=== PATIENT | male | born 1950 | race Caucasian/White ===

== ENCOUNTER 2017-09-13 16:53 | Inpatient (IN) | payer OTHER ==
--- NOTE | 2017-09-13 17:06 | CPEKG ---
Heart Rate: 82 RR Interval: 732 P-R Interval: 164 QRSD Interval: 94 QT Interval: 404 QTC Interval: 472 P Fyffe: 61 QRS Fyffe: 53 T Wave Fyffe: 36 EKG Severity - BORDERLINE ECG - EKG Impression: SINUS RHYTHM EKG Impression: PROBABLE LEFT ATRIAL ABNORMALITY Electronically Signed By: Nancy Baldwin 13-Sep-2017 22:10:09
--- NOTE | 2017-09-13 17:10 | EDPHY ---
H & P Time Seen by Provider: 09/13/17 16:59 HPI/ROS: CHIEF COMPLAINT: Syncope, head injury HISTORY OF PRESENT ILLNESS: Patient is a 66-year-old male with a history of malignancy who presents emergency department after having a syncopal episode. The patient does not recall the event. He is not sure what he is doing when he fainted. Patient states that he had planned on getting medication from the pharmacy. Patient currently complains of mild posterior head pain. He denies neck or back pain. No chest pain or shortness of breath. No abdominal pain. No nausea vomiting. The patient is not lightheaded or dizzy. He does not feel weak or numb. No focal deficits. Per EMS, the patient was at the eye doctor's office. He was found in the parking lot. REVIEW OF SYSTEMS: My complete review of systems is negative except as mentioned in the HPI. Past Medical/Surgical History: Includes hypertension, MDS Past surgical history: Hernia repair, port placement Social history: Patient is . No acute disease. Smoking Status: Never smoked Physical Exam: Vitals noted GENERAL: Well-appearing, in no acute distress, alert. HEAD: Patient has a posterior head hematoma. There is a 2 cm vertical laceration posteriorly. No galea involvement EYES: PERRLA, EOMI, normal to inspection. ENT: Airway intact, no dental or oral injury, no malocclusion, no hemotympanum , normal external examination. NECK: The trachea is midline. There is no crepitus. The C-spine is nontender. NEXUS criteria is negative (no midline tenderness, no distracting injury, no altered mental status, no recent alcohol use, no focal neurologic deficit). RESPIRATORY: Clear to auscultation bilaterally, no rales, rhonchi or wheezing. There is no crepitus or palpable rib fractures. CVS: Regular rate and rhythm, no rubs, murmurs, or gallops. ABDOMEN: Soft, nontender, nondistended, normal bowel sounds, no bruising or abrasions. Pelvis: Stable. No tenderness palpation. Hips full range of motion. BACK: Normal to inspection, no spinal tenderness, no spinal step off, no notable bruising or abrasions. SKIN: Normal color, warm, dry. No pallor or diaphoresis. EXTREMITIES: Atraumatic, neurovascularly intact distally in all extremities, pelvis is stable , hips with full range of motion, moves all extremities freely. NEURO/PSYCH: Alert and oriented x 3, GCS 15, normal mood and affect, normal motor sensory exam. NEURO/PSYCH: Higher functions: Alert and Oriented x3. Normal speech and cognition. Normal mood and affect. Cranial nerves: Normal as tested. Cerebellar: Normal as tested. Good finger to nose, good [id number], normal gait. Peripheral exam: Normal motor exam. Normal sensation. Normal reflexes. Constitutional: Initial Vital Signs Temperature (C) 36.7 C 09/13/17 16:57 Heart Rate 86 09/13/17 16:57 Respiratory Rate 16 09/13/17 16:57 Blood Pressure 114/75 09/13/17 16:57 O2 Sat (%) 96 09/13/17 16:57 O2 Delivery Mode Room Air Allergies/Adverse Reactions: Sulfa (Sulfonamide Antibiotics) Allergy (Verified 09/13/17 16:57) Home Medications: Medication Instructions Recorded Acyclovir 09/13/17 Amlodipine Besylate 09/13/17 Fioricet (*) 09/13/17 Fluocinonide 0.05% 09/13/17 Lorazepam 09/13/17 Omeprazole 09/13/17 Pentamidine Isethionate 09/13/17 Tacrolimus 09/13/17 Tamsulosin HCl 09/13/17 Ursodiol 09/13/17 Voriconazole 09/13/17 Zofran 09/13/17 Medical Decision Making - Diagnostics Imaging Results: Imaging Impressions Chest X-Ray 09/13/17 17:13 Impression: 1. No evidence for aspiration pneumonia or neurogenic pulmonary edema. 2. Thoracic scoliosis with several mild compression abnormalities of unknown chronicity. Head CT 09/13/17 17:13 Impression: 1. Oblique nondisplaced left parietal acute skull fracture. 2. Acute subarachnoid hemorrhage involving the basilar cisterns and anterior interhemispheric falx region. 3. Posttraumatic hemorrhagic cortical contusions involving the anteroinferior mesial bilateral frontal lobes, with right frontal lobe edema, subarachnoid hemorrhage, and anterior interhemispheric falx hemorrhage. 4. Mild cerebral atrophy. 5. Recommend follow-up CTA brain to rule out basilar tip aneurysm. Findings and recommendations discussed with Emergency Department physician, Nancy Baldwin M.D., at 1726 hours, on September 13, 2017. Final report concurs with initial preliminary interpretation. A test result has been communicated to a licensed care provider and documented in the [email or web address] Critical Result system on 09/13/2017 17:36, Message ID [id number]. ED Course/Re-evaluation: In the emergency department I discussed possible etiologies with the patient. I answered all his questions. Laboratory studies, EKG and head CT were ordered. EKG shows normal sinus rhythm, normal rate, normal axis, normal intervals. There are no ST or T-wave abnormalities. EKG is normal as interpreted by me. 17 15: Patient's arrived. I took further history from his . He states that he is being treated for MDS. He does not have AML. She states he went to the eye doctor today. I walked Radiology to review the images with the radiologist. Head CT results showed a subarachnoid hemorrhage. This was in the basilar region which raises the question of aneurysm. Patient also has a left parietal skull fracture. White count was low at 3.3. Absolute neutrophil count is 1.04. Hematocrit was low at 24.7. Platelet counts were low at 30. Coags are normal. Patient's chemistry panel is unremarkable. Troponin is pending. 1730: I discussed the case with Dr. Fuchs from Neurosurgery. I discussed the CT results. I also discussed the platelets at 30. At this time Dr. Fuchs does not want to treat the patient with platelets. She states that if the patient had a subdural hematoma or epidural hematoma she would consider platelets but not for subarachnoid hemorrhage. She did not recommend further imaging. She recommended the patient be placed in the step-down unit. 1735: I discussed the patient with the hospitalist service. Dr. Dye will admit. I discussed the case with the hospitalist service because the patient has a history of MDS, reported immunodeficiency, and chronic anemia. I discussed the results with the patient and . I answered all of their questions. I assured the laboratory studies with the patient's . She states that the white count is improved. The hematocrit seems to be at his baseline. She states the platelets are improved from his previous value of 11. 1749: I rechecked the patient. He had no focal neurologic deficits. He has answer my questions appropriately. 1804: I discussed the case with from [facility]. This is the patient's oncologist. The I discussed the patient's findings and presentation at [facility]. He felt it appropriate to observe the patient here until he is stable for transfer to [facility]. Dr. Francois's phone number is [phone] On subsequent evaluation by Neurosurgery the patient was treated with platelets. These were ordered by the neurosurgery service. Neurosurgery also ordered a CT angiogram. I discussed the plan with Dr. Skinner who was in the emergency department. It was noted the patient had elevated blood pressure and heart rate. Dr. Skinner discussed this with Neurosurgery the patient's blood pressure will be kept at below 150 systolic. Differential Diagnosis: My differential includes but is not limited to syncope, ACS, acute MN, dysrhythmia, electrolyte abnormality, sugar abnormality, subarachnoid hemorrhage , subdural hematoma, epidural hematoma Critical Care Time: The patient required 35 min of critical care time. This was exclusive of any unbundled procedure. This was due the patient's history, need for frequent rechecks, intracranial hemorrhage, consultation with Neurosurgery and Internal Medicine. - Data Points Laboratory Results: Laboratory Results 09/13/17 17:16 09/13/17 17:16 09/13/17 09/13/17 09/13/17 17:18 17:16 17:16 WBC 3.30 10^3/uL L 10^3/uL (3.80-9.50) RBC 2.40 10^6/uL L 10^6/uL (4.40-6.38) Hgb 8.4 g/dL L g/dL (13.7-17.5) Hct 24.7 % L % (40.0-51.0) MCV 102.9 fL H fL (81.5-99.8) MCH 35.0 pg H pg (27.9-34.1) MCHC 34.0 g/dL g/dL (32.4-36.7) RDW 14.8 % % (11.5-15.2) Plt Count 30 10^3/uL L 10^3/uL (150-400) MPV 9.9 fL fL (8.7-11.7) Neut % (Auto) 31.5 % L % (39.3-74.2) Lymph % (Auto) 60.6 % H % (15.0-45.0) [place] % (Auto) 6.7 % % (4.5-13.0) Eos % (Auto) 0.0 % L % (0.6-7.6) Baso % (Auto) 0.9 % % (0.3-1.7) Nucleat RBC Rel Count 0.0 % % (0.0-0.2) Absolute Neuts (auto) 1.04 10^3/uL L 10^3/uL (1.70-6.50) Absolute Lymphs (auto) 2.00 10^3/uL 10^3/uL (1.00-3.00) Absolute Monos (auto) 0.22 10^3/uL L 10^3/uL (0.30-0.80) Absolute Eos (auto) 0.00 10^3/uL L 10^3/uL (0.03-0.40) Absolute Basos (auto) 0.03 10^3/uL 10^3/uL (0.02-0.10) Absolute Nucleated RBC 0.00 10^3/uL 10^3/uL (0-0.01) Immature Gran % 0.3 % % (0.0-1.1) Immature Gran # 0.01 10^3/uL 10^3/uL (0.00-0.10) Platelet Estimate DECREASED L (ADEQ) PT 14.2 SEC SEC (12.0-15.0) INR 1.08 (0.83-1.16) APTT 28.3 SEC SEC (23.0-38.0) Sodium 145 mEq/L mEq/L (135-145) Potassium 3.8 mEq/L mEq/L (3.5-5.2) Chloride 110 mEq/L mEq/L (97-110) Carbon Dioxide 19 mEq/l L mEq/l (22-31) Anion Gap 16 mEq/L mEq/L (8-16) BUN 14 mg/dL mg/dL (7-23) Creatinine 1.0 mg/dL mg/dL (0.7-1.3) Estimated GFR > 60 Glucose 100 mg/dL mg/dL (70-100) Calcium 8.9 mg/dL mg/dL (8.5-10.4) Troponin I < 0.012 ng/mL ng/mL (0.000-0.034) Medications Given: Discontinued Medications Sodium Chloride (Ns) 500 mls @ 1,000 mls/hr IV EDNOW ONE PRN Reason: Protocol Stop: 09/13/17 17:41 Last Admin: 09/13/17 18:27 Dose: 500 mls Departure - Departure Disposition: [facility] Inpatient Acute Clinical Impression: Subarachnoid bleed, MDS (myelodysplastic syndrome), Thrombocytopenia, Laceration of head Syncope Qualifiers: Syncope type: unspecified Qualified Code(s): R55 - Syncope and collapse Anemia Qualifiers: Anemia type: bone marrow failure Bone marrow failure anemia type: other bone marrow failure Qualified Code(s): D61.89 - Other specified aplastic anemias and other bone marrow failure syndromes Condition: Good
[2017-09-13] MEDS ORDERED: NS 500 ML IV ONE (17:12)
[2017-09-13 17:22] LABS: PLATELET COUNT 30 10^3/uL (150-400)
[2017-09-13 17:31] LABS: INR 1.08 (0.83-1.16); PROTIME(PATIENT) 14.2 SEC (12.0-15.0)
[2017-09-13] MEDS ORDERED: IOPAMIDOL (ISOVUE 370) 100 ML BTL IV ONE (18:05)
[2017-09-13] MEDS: niCARdipine/NACL 200 ML IV SCH ×2 (20:26→23:25)
[2017-09-13] MEDS: NS 1,000 ML IV SCH (20:26)
[2017-09-13] MEDS ORDERED: ACETAMINOPHEN 325 MG TAB PO PRN (21:03)
--- NOTE | 2017-09-13 21:16 | GHP ---
[f rep st] HISTORY AND PHYSICAL DATE OF ADMISSION: 09/13/2017 CHIEF COMPLAINT: Fall. HISTORY OF PRESENT ILLNESS: This is a 66-year-old man with a history of MDS, who was brought into e emergency department after being found in the parking lot. 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 He remembers pulling into the parking lot, however, he does not remember parking the car or any thing thereafter. He really has no idea what happened. He was found by bystanders on the ground. E MS was called. He was taken to the emergency department. He was found to have a subarachnoid hemorr estefania at that time. He does not remember any preceding shortness of breath, chest pain, or palpitatio ns. He does have a history of syncope as well as frequent presyncope which is typically postural. T his did not happen. He does not have any recollection of that, as it usually gives him a prodrome pr ior to his syncopal episodes. He is complaining of some right shoulder pain. He has no numbness or weakness in his upper or lower extremities. PAST MEDICAL/SURGICAL HISTORY: 1. 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 He j ust got a DLI (direct leukocyte infusion) this Monday. He is followed by Dr. Francois at [facility]. 2. Hypertension. 3. GERD. 4. BPH. MEDICATIONS: Please see medication reconciliation. ALLERGIES: Sulfa. FAMILY HISTORY: Reviewed and noncontributory. SOCIAL HISTORY: He is accompanied by his . REVIEW OF SYSTEMS: 10-point review of systems is conducted and is negative except per HPI. PHYSICAL EXAMINATION: VITAL SIGNS: Blood pressure 160/82, heart rate 89, respiration rate 18, satur ating 95% on room air, temperature is 36.7. GENERAL. Mr. Ordoñez is a pleasant man, who is resting com fortably, in no acute distress. HEENT: Shows him to have a bandage wrapped around his head. EXTREM ITIES: Shows his right shoulder to be tender to palpation in the posterior deltoid. He has node res tricted range of motion. He has no clear deformities. CARDIOVASCULAR: Regular rate and rhythm. ere are no murmurs, rubs, or gallops. PULMONARY: Lungs clear to auscultation bilaterally. ABDOMEN: Soft, nontender, nondistended. SKIN: No rash. : No [place]bin. NEUROLOGIC: Shows him to be alert and oriented x3. He is answer questions slightly slowly. Motor is intact in the upper and lower ex tremities. Cranial nerves are intact. PSYCHIATRIC: Shows normal mood and affect. LABS: White count is 3.3, hemoglobin is 8.4, platelets are 30. INR is 1.08, bicarb was 19. Troponi n is negative. DATA: 1. I discussed with Dr. Baldwin, as well as Lyssa Riley, we will admit to step-down unit. 2. Head CT scan shows parietal scalp fracture as well as multiple areas of intracranial hemorrhage, as well as a subarachnoid hemorrhage. 3. Chest x-ray, which I personally viewed and interpreted, shows scoliosis. He has a tunneled line in place. 4. EKG, which I personally viewed and interpreted, shows sinus rhythm. There is nothing acutely isc hemic. IMPRESSION AND PLAN: 1. Possible syncope: Initial discussion with Neurosurgery, they feel as though this is traumatic he morrhage. Because of this, we will perform cardiac workup including echocardiogram, telemetry monito ring, trend troponins. Certainly syncope could have been triggered by an acute subarachnoid hemorrha ge, as well if this were nontraumatic. 2. Subarachnoid hemorrhage with cortical contusions: Neurosurgery has been consulted. This will li erin be nonoperative. His platelets are low, we will transfuse him platelets tonight. CT angiogram of his head has been performed to look for aneurysms, read is pending at this time. Blood pressure w ill be controlled to a systolic per protocol. I have written for a nicardipine drip. 3. Myelodysplastic syndrome: He is under the care of Dr. Francois at [facility] the phone #[phone]. Wou ld consider transfer to [facility] if Dr. Francois requests that. Is not on any immunosuppressants right now. He is on prophylactic voriconazole and acyclovir. 4. Hypertension: We will hold his oral medications for now and control his blood pressure with ml rdipine. 5. Gastroesophageal reflux disease: Omeprazole. 6. Benign prostatic hypertrophy: Flomax. /[id number]/MODL
[2017-09-13] MEDS: HYDROCODONE/APAP 5/325 TAB PO PRN (21:56)
[2017-09-13] MEDS ORDERED: EMOLLIENT BASE TP PRN (21:56)
[2017-09-13] MEDS ORDERED: DESONIDE 0.05% 15 GM CREAM TP PRN (21:56)
[2017-09-13] MEDS ORDERED: FLUOCINONIDE TP PRN (21:56)
[2017-09-13] MEDS: HYDROmorphONE/DILAUDID 2 MG/ML INJ IVP PRN (23:02)
[2017-09-13] MEDS ORDERED: ONDANSETRON 4 MG/2 ML VIAL ONE (23:06)
[2017-09-13] MEDS ORDERED: ONDANSETRON 4 MG/2 ML VIAL IVP PRN (23:09)
--- NOTE | 2017-09-13 23:32 | GCON ---
[f rep st] CONSULTATION DATE OF CONSULTATION: 09/13/2017 CHIEF COMPLAINT: Syncope. HISTORY OF PRESENT ILLNESS: This is a 66-year-old male with a history of myelodysplastic disorder an d orthostatic hypotension, who was apparently driving to get some medication, attempted to stand up f rom getting out of his car. He remembers nothing else until he was being moved onto the gurney. He complains of some pain in his right mormon. He had a laceration to his head. He denies any tongue b iting, any loss of bowel or bladder. He denies any other numbness, tingling, weakness or pain, with the exception of exquisite pain to his right shoulder, worse with movement. PAST MEDICAL HISTORY: Positive for myelodysplasia, orthostatic hypotension, anemia, thrombocytopenia . PAST SURGICAL HISTORY: Includes herniorrhaphy, wisdom teeth removal, cardiac cath, and a right chest port. FAMILY HISTORY: No family history that is contributory. SOCIAL HISTORY: He does not smoke. He does drink approximately 2 glasses of wine a night. He does not use any other illicit drugs. MEDICATIONS: At home include: 1. Pentamidine isethionate. 2. Multivitamins. 3. Herbal supplements. 4. Fluocinonide. 5. Desonide. 6. Venlafaxine. 7. Acyclovir. 8. Fioricet. 9. Omeprazole. 10. Flomax. 11. . 12. Vfend. ALLERGIES: Sulfa, although he has tolerated Bactrim in the past. Blood pressure is 173/80, heart rate is 92, respiratory rate is 16, satting 95% on room air, temp is 36.7 degrees Celsius. LABORATORY DATA: White blood cell count 3.3, hemoglobin 8.4, hematocrit 24.7, platelets are 30. PT 14.2, INR 1.08, APTT 28.3. Sodium 145, potassium 3.8, chloride 110, CO2 19, BUN 14, creatinine 1.0. CT of the head reveals an oblique nondisplaced left parietal acute skull fracture and acute subarach noid hemorrhage involving the basilar cisterns and anterior interhemispheric falx. Posttraumatic hem orrhagic cortical contusion involving the anterior inferior medial bilateral frontal lobes with right frontal lobe edema, subarachnoid hemorrhage and anterior interhemispheric falx hemorrhage, mild cere bral atrophy, and it was recommended that he have a followup CT of the brain to rule out a basilar an eurysm given the pattern of the subarachnoid hemorrhage. CT angio was performed and there is unchang ed appearance in the frontal contusions and no aneurysm was identified. PHYSICAL EXAM: GENERAL: He is alert and oriented x3. HEENT: Pupils equal, round, reactive to ligh t and accommodation. External ocular muscles are intact. There is no facial asymmetry or tongue dev iation. NEUROLOGIC: Sensation is intact in V1, V2, V3 distributions of 5th cranial nerve bilaterall y. Strength is 5/5 to bilateral deltoids, although the right deltoid is pain limited, biceps, tricep s, wrist flexors, wrist extensors, hand intrinsics, iliopsoas, quadriceps, hamstrings, dorsiflexors, plantar flexors, EHL. DTRs are +2/4 biceps, brachioradialis, patellar and Achilles. IMPRESSION AND PLAN: This is a 66-year-old male with thrombocytopenia and orthostatic hypotension, w ho had a syncopal episode likely secondary to his baseline orthostatic hypotension, who has a subarac hnoid hemorrhage and contusion that is traumatic in nature. He is neurologically intact. He is in t intensive care unit. I would control his blood pressure to 160 systolic, keep his head of bed gre ater than 30 degrees, repeat head CT in the morning. He did receive a 6-pack of platelets given that his platelets are 30 and he does have some cerebral contusion. I would hold off on Keppra as he is a GCS of 15, q.2-hour neuro checks are adequate. Please call with any changes in neurologic status. Otherwise, we will follow for a repeat head CT in the a.m. This was discussed with the patient and the nurse who was at bedside and all were in agree ment. /[id number]/MODL
[2017-09-14] MEDS: HYDROCODONE/APAP 5/325 TAB PO PRN (03:21)
[2017-09-14] MEDS: niCARdipine/NACL 200 ML IV SCH (03:22)
[2017-09-14 06:08] LABS: PLATELET COUNT 43 10^3/uL (150-400)
[2017-09-14 06:18] LABS: INR 1.14 (0.83-1.16); PROTIME(PATIENT) 14.8 SEC (12.0-15.0)
--- NOTE | 2017-09-14 07:45 | NEUSURGPN ---
Assessment/Plan: A: 66 yo M s/p syncopal event with tSAH, contusion, skull fracture Plan: -Neuro intact, GCS 15 this am -Continue Q4 neuro checks, continue ICU care. -Shoulder pain - xrays done no abnormalities -Repeat HCT reviewed with Dr. Fuchs this am. New area of right temporal hemorrhage, blossoming of frontal hemorrhage. Report is pending. -Platelets 43 this am, will give another pack of platelets -PT/OT/DRIVE AWAY DRIVER ordered -CTA without aneurysm or other vascular abnormalities -Repeat HCT tomorrow am -Call NS with any questions -D/w Dr Fuchs Subjective: Pt resting in bed, c/o shoulder pain. Objective: AAOx3 NAD VSS CN II-XII grossly intact No droop Motor 5/5 BUE/BLE +LT Neuro Check Frequency: Q4 Urinary Catheter in Place: No - Physician Discussed Patient with : [facility] Physical Exam - Vitals, I&O, Labs I and O 09/13/17 09/14/17 09/15/17 05:59 05:59 05:59 Intake Total 2537 Output Total 1875 Balance 662 Weight 81.5 kg Intake: Oral (ml) 800 IV Infused (ml) 1737 Ns 1,000 ml @ 70 mls/hr 665 IV CONT GAETANO Rx#: [id number] niCARdipine/NACL 200 ml @ 472 Titrate IV CONT GAETANO Rx#: [id number] Output: Urine (ml) 1875 Urinal 1425 Vital Signs Temp Pulse Resp BP Pulse Ox 37.1 C 87 16 125/57 H 97 09/14/17 04:00 09/14/17 06:00 09/14/17 06:00 09/14/17 06:00 09/14/17 06:00 Laboratory Results 09/14/17 05:50 09/14/17 05:50 ICD10 Worksheet Patient Problems: Problems Problem Status Onset Anemia Acute Laceration of head Acute MDS (myelodysplastic syndrome) Acute Subarachnoid bleed Acute Syncope Acute Thrombocytopenia Acute
[2017-09-14] MEDS ORDERED: URSODIOL 250 MG PO SCH (09:00)
[2017-09-14] MEDS ORDERED: VORICONAZOLE 50 MG PO SCH (09:00)
--- NOTE | 2017-09-14 09:03 | ECHO ---
[email or web address] [address] [address] Main: [phone] Fax: Transthoracic Echocardiogram Name: MARGARITA PERRY MR#: [id number] Study Date: 09/14/2017 Study Time: 07:47 AM Date of : 1950 Age: 66 year(s) Height: 175.3 cm (69 in.) Weight: 76.66 kg (169 lb.) BSA: 1.92 m2 Gender: Male Examination: Echo Indication: Cardiac: syncope Image Quality: Contrast: Requested by: Melvin Skinner BP: 121 mmHg/56 mmHg Heart Rate: Rhythm: Indication: Cardiac: syncope Procedure Staff Director Of Retention: Jourdan Carvajal RDCS Reading Physician: Julien Hernandez MD Requesting Provider: Conclusions: No pericardial effusion. Ejection fraction 79%. No significant valvular abnormalities by Doppler 2 dimensional study. Measurements: Chambers Valvular Assessment AV/MV Valvular Assessment TV/PV Normal Normal Normal Name Value Range Name Value Range Name Value Range Ao Jenae (MM): 3.7 cm (2.2 cm-3.7 AV Vmax: 1.45 m/s (1 m/s-1.7 PV Vmax: 1.17 m/s (0.6 m/s-0.9 cm) m/s) m/s) IVSd (2D): 1.0 cm (0.6 cm-1.1 AV maxP mmHg ( - ) PV PGmax: 5 mmHg ( - ) cm) LVOT Vmax: 1.11 m/s (0.7 m/s-1.1 LVDd (2D): 5.1 cm (4.2 cm-5.9 m/s) cm) AR (PHT): 406 ms ( - ) LVDs (2D): 2.7 cm (2.1 cm-4 MV E Vmax: 1.08 m/s ( - ) cm) MV A Vmax: 0.80 m/s ( - ) LVPWd (2D): 1.0 cm (0.6 cm-1 MV E/A: 1.35 ( - ) cm) LVEF (2D): 79 (>=54 %) Continued Measurements: Chambers Valvular Assessment AV/MV Name Value Name Value LADs Lon.6 cm MV E' Septal: 0.07 m/s LA Area: 21.2 cm2 MV E/E' Septal: 15.00 LA Volume: 65 ml MV E/E' Lateral: 9.90 LA Volume Index: 33.9 ml/m2 AR Vmax: 2.40 cm/s Patient: MARGARITA PERRY Study Date: 09/14/2017 Page 1 of 2 07:47 AM Findings: Left Ventricle: Normal size left ventricle. No LV hypertrophy. Global hypercontractility of the left ventricle. EF is 79 %. No regional wall motion abnormality. Diastolic dysfunction is present. . Right Ventricle: Normal size right ventricle. Normal RV function. Left Atrium: The left atrium is normal in size. Right Atrium: The right atrium is normal in size. Mitral Valve: The mitral valve is normal in appearance and function. Aortic Valve: The aortic valve is tri-leaflet and functions normally. Trivial aortic valve regurgitation. Tricuspid Valve: The tricuspid valve is normal in appearance and function. Pulmonic Valve: The pulmonic valve is normal in appearance and function. Aorta: The aorta is normal. Pericardium: No pericardial effusion. (No Signature Object) Patient: MARGARITA PERRY Study Date: 09/14/2017 Page 2 of 2 07:47 AM [id number]
[2017-09-14] MEDS: PANTOPRAZOLE SODIUM 40 MG TAB PO SCH (09:07)
[2017-09-14] MEDS: VORICONAZOLE 200 MG TAB PO SCH ×2 (09:07→20:49)
[2017-09-14] MEDS: VENLAFAXINE HCL 75 MG TAB PO SCH (09:08)
[2017-09-14] MEDS: TAMSULOSIN HCL 0.4 MG CAP PO SCH ×2 (09:08→19:44)
[2017-09-14] MEDS: ACYCLOVIR 400 MG TAB PO SCH ×2 (09:09→19:44)
[2017-09-14] MEDS ORDERED: DESONIDE 0.05% 15 GM CREAM TP PRN ×2 (09:11→09:17)
[2017-09-14] MEDS ORDERED: FLUOCINONIDE TP PRN (09:15)
[2017-09-14] MEDS ORDERED: EMOLLIENT BASE TP PRN (09:15)
--- NOTE | 2017-09-14 10:40 | PDMN ---
Medical Necessity Medical necessity: Patient meets inpatient criteria per physician note and MCG M -70 SAH, Nonsurgical Treatment - 4 days (found down in a parking lot, CT shows SAH and parietal skull fracture, hx of MDS w/orthostatic hypotension; now hypertensive/on Cardene IV gtt for B/P; thrombocytopenic/platelets transfused; anticipated LOS > 2 midnights for ongoing eval and treatment of SAH.)
[2017-09-14] MEDS: oxyCODONE IR 5 MG TAB PO PRN ×2 (11:42→19:43)
[2017-09-14] MEDS: VORICONAZOLE 50 MG PO SCH ×2 (11:42→20:49)
[2017-09-14] MEDS: URSODIOL 250 MG PO SCH ×2 (11:42→19:45)
--- NOTE | 2017-09-14 13:18 | ASMTCASEMG ---
Living Arrangements What is your living Answers: With Spouse arrangement? Who do you live with? Type Of Residence What kind of residence do Answers: House you live in? Discharge Plan Comments Coordination Status Comments Notes: Patient is a 66yo male who was found down in a parking lot and brought to [facility] ED. Patient has been admitted for subarachnoid hemorrhage with cortical contusions, possible syncope, hypertension. OT/PT/SKOOG MACHINE OPERATOR/Inpatient rehab evals have been ordered. Jaylene from inpatient rehab called to say they are aware and will be sending someone to do the eval when patient is ready medically. D/C plan TBD. CM will follow. Date Signed: 09/14/2017 01:17 PM Electronically Signed By:Olya Estrada LCSW
--- NOTE | 2017-09-14 17:44 | GCON ---
[f rep st] CONSULTATION INPATIENT HEMATOLOGY CONSULTATION DATE OF CONSULTATION: 09/14/2017 REQUESTING PHYSICIAN: Dr. Fredo Kothari REASON FOR CONSULTATION: Intracranial hemorrhage in a patient with myelodysplastic syndrome. HISTORY OF PRESENT ILLNESS: The patient is a 66-year-old man admitted with a right temporal subarach noid hemorrhage. He had a likely syncopal episode that he does not recall yesterday. He has chronic thrombocytopenia due to myelodysplastic syndrome, which I will detail in the next paragraph. His pl atelet count on admission was 30. He received a unit of platelets and platelet count went up to 43. A CT of the head done today showed some slight evidence of progression of the hemorrhage and he was given an additional unit of platelets. He is not having any other bleeding. His history of myelodysplastic syndrome is as follows. He was diagnosed in December of 2016. He has a h istory of recurrent syncope and he was noted to be pancytopenic during evaluation for 1 of these epis odes. He received treatment with azacitidine. 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 His sister was the donor. Subsequent b one marrow biopsies unfortunately showed persistence of dysplastic cells and he has been given severa l doses of donor lymphocyte infusion at the [facility] by his service desk analyst there , Dr. Garcia. He is receiving DLI alternating with azacitidine and if the response is inadequate, he may go for 2nd unrelated transplant. I discussed the case with Dr. Garcia over the phone. The patent apparently received a fairly large dose of donor lymphocyte cells [address] Garcia wanted hi m to observe carefully for evidence of acute [id number]-nzjg disease. PAST HISTORY: 1. Myelodysplastic syndrome, as described above. 2. Status post allogeneic stem cell transplant. 3. History of recurrent syncope. CURRENT MEDICATIONS: Include [place], acyclovir, fluconazole, and Effexor. ALLERGIES: He is allergic to sulfa. FAMILY HISTORY: Noncontributory. SOCIAL HISTORY: He is a nonsmoker, nondrinker. Lives with his . REVIEW OF SYSTEMS: Other than pertinent positives noted in HPI, 14-point review of systems negative. EXAMINATION: VITAL SIGNS: Temperature is 36.8, blood pressure 140/72, heart rate 67, oxygen saturat ion 97% on room air. GENERAL: He was tired-appearing. HEENT: His head was bandaged with some blee ding from a superficial abrasion. Sclerae anicteric. Oropharynx is clear. NECK: Supple without ly mphadenopathy. LUNGS: Clear to auscultation bilaterally. CARDIAC EXAMINATION: Regular rate and rh ythm. No murmurs, gallops, rubs. ABDOMEN: Normoactive bowel sounds. Nontender. Nondistended. EX TREMITIES: Without edema, 2+ pulses. NEUROLOGIC: He is alert and oriented x3. Strength and sensat ion were grossly intact. SKIN: No petechiae or purpura. LABORATORY DATA: From today, white count 2.45, hemoglobin 7.3, platelets 43. INR 1.14, PTT 28.3. IMPRESSION: This is a 66-year-old man with a history of what sounds like high-risk myelodysplastic s yndrome, status post allogeneic stem cell transplant and donor lymphocyte infusion. He had what soun ds like a syncopal episode and struck his head. He has what sounds like a history of orthostatic hyp otension. He is being monitored closely in the ICU for evidence of progression of his intracranial b leed, which fortunately does appear stable. There is no clinical evidence of graft versus host disea se, which would manifest as a rash, diarrhea, or liver function test abnormalities. RECOMMENDATIONS: 1. Continue to transfuse to keep platelet count above 50. 2. I will check a fibrinogen just to ensure there is no additional coagulopathy at play. There is n o reason to think that would be low, however. 3. When the patient is stable enough, it would be advantageous to discharge him so he can be followe d closely in Dr. Garcia's clinic to monitor for [id number], to make sure he is staying on track with the rest of his therapy. However, if the patient is unstable from a neurological point of view , he should obviously be kept here to manage that life-threatening problem. 4. I discussed this case by telephone with Dr. Garcia, and also with Dr. Kothari, the hospitalist. Thank for this consultation. I will continue to follow the patient with you closely [facility]. /[id number]/MODL
--- NOTE | 2017-09-14 18:27 | HOSPPROG ---
Hospitalist Progress Note Assessment/Plan: Assessment: 66-year-old male presents with acute skull fracture and acute intracranial hemorrhage complicated by thrombocytopenia secondary to myelodysplastic syndrome Plan: 1. Intracranial hemorrhage. Acute, present on admission, considered to be traumatic in the setting of syncope -follow-up head CT demonstrating worsening in the right temporal and frontal areas -CTA not demonstrating any evidence of aneurysm -appreciate neurosurgery consultation, ongoing care from Dr. Ora Fuchs, repeat head CT in a.m. -provide additional transfusion of platelets today -maintain systolic blood pressure less than 140 -neurologic exam currently stable, primary symptom is lethargy 2. Syncope. Unclear etiology, patient does not recall events precipitating his fall but has had previous episodes of syncope or near syncope -echocardiogram currently pending -currently no events on telemetry -recommend outpatient 30 day event monitor through [facility] 3. Thrombocytopenia. Secondary to mild dysplastic syndrome, continue to transfuse platelets for levels less than 50,000 in setting of active bleeding 4. Pancytopenia 2/2 Myelodysplastic syndrome. Chronic, status post transplant and DLI, at high risk of graft vs host disease and receives frequent lab monitoring as outpt -currently no e/o GVHD -Dr. Chaney checking fibrinogen level -d/w patient and , although we fully support transfer of patient to [facility] for ongoing care related to this issue, [facility] is unable to provide appropriate care for his traumatic ICH, so transfer is unable to be arranged -given the complexity and concerns surrounding his MDS, consultation w/ Dr. Chaney performed, and he has discussed the patient's case w/ primary oncologist Dr. Francois -per patient/ request, we will attempt to conference call/round w/ Dr. Francois tomorrow 4. Suspected concussion. Evidenced by retrograde amnesia status post traumatic head injury -may be contributing some of patient's lethargy 5. Acute skull fracture. Ongoing head trauma care 6. Shoulder pain. Acute, no evidence of fracture on x-ray, physical exam suggestive of either rotator cuff injury or possible underlying hematoma given his thrombocytopenia and trauma -given that no surgical intervention would be performed at this time even if the patient did have a small traumatic hematoma, will hold on advanced imaging and recommend performing MRI as outpatient if the range of motion does not improve over the next week with conservative measures including heat and ice Diet. Regular Prophylaxis. High risk patient, SCDs Code. Full Disposition. Anticipated discharge is uncertain, pending stabilization of head CT 35 min of critical care time spent with this patient, coordinating care with his , his nurse, our correctional counselor/case manager, Dr. Aristeo Chaney, and specifically addressing his acute intracranial hemorrhage and concomitant myelodysplastic syndrome, rendering him critically ill and high risk for worsening morbidity and /or mortality. Subjective: Patient reports ongoing fatigue, mild headache Objective: Vital Signs Temp Pulse Resp BP Pulse Ox 36.8 C 67 15 148/72 H 97 09/14/17 15:42 09/14/17 15:42 09/14/17 15:42 09/14/17 15:42 09/14/17 12:00 Laboratory Results 09/14/17 05:50 09/14/17 05:50 09/13/17 09/14/17 09/15/17 05:59 05:59 05:59 Intake Total 2537 1170 Output Total 1875 950 Balance 662 220 PT 14.8 SEC (12.0-15.0) 09/14/17 05:50 INR 1.14 (0.83-1.16) 09/14/17 05:50 - Physical Exam Constitutional: no apparent distress, not in pain, uncomfortable Eyes: PERRL, EOMI Ears, Nose, Mouth, Throat: hearing normal Cardiovascular: regular rate and rhythym, no murmur, rub, or gallop, No edema Respiratory: no respiratory distress, no rales or rhonchi, clear to auscultation Gastrointestinal: normoactive bowel sounds, soft, non-tender abdomen, no palpable masses, No distension Skin: other (No erythema, induration, ecchymoses at his right chest catheter site) Musculoskeletal: other (Limited range of motion right shoulder on active and passive range of motion greater than 90 degrees with pain elicited in the right shoulder, tenderness over the sub a.c. Joint space as well anterior shoulder groove, no tenderness over the right clavicle or posterior shoulder, no tenderness on internal or external rotation of the right humerus) Neurologic: AAOx3, sensation intact bilaterally, CN II-XII Intact, No weakness ( Motor strength 5/5 bilateral upper and lower extremities) Psychiatric: not anxious, not encephalopathic, flat affect, No agitated ICD10 Worksheet Patient Problems: Problems Problem Status Onset Syncope Acute Subarachnoid bleed Acute Anemia Acute MDS (myelodysplastic syndrome) Acute Thrombocytopenia Acute Laceration of head Acute
[2017-09-14] MEDS: hydrALAZINE 20 MG/ML VIAL IVP PRN (19:44)
[2017-09-14] MEDS ORDERED: VORICONAZOLE 200 MG TAB PO ONE (20:30)
[2017-09-14] MEDS ORDERED: hydrALAZINE 20 MG/ML VIAL IVP ONE (22:21)
[2017-09-15 05:37] LABS: PLATELET COUNT 65 10^3/uL (150-400)
[2017-09-15] MEDS: hydrALAZINE 20 MG/ML VIAL IVP PRN (07:11)
[2017-09-15] MEDS: oxyCODONE IR 5 MG TAB PO PRN (07:12)
--- NOTE | 2017-09-15 08:30 | CPEKG ---
Heart Rate: 71 RR Interval: 845 P-R Interval: 156 QRSD Interval: 92 QT Interval: 412 QTC Interval: 448 P [place]: 74 QRS [place]: 70 T Wave [place]: 53 EKG Severity - ABNORMAL ECG - EKG Impression: SINUS RHYTHM EKG Impression: VENTRICULAR BIGEMINY EKG Impression: SINUS PAUSE/ARREST WITH ATRIAL ESCAPE EKG Impression: PROBABLE LEFT ATRIAL ABNORMALITY Electronically Signed By: Janelle Andrew 15-Sep-2017 12:25:41
--- NOTE | 2017-09-15 08:59 | NEUSURGPN ---
Assessment/Plan: A: 66 yo M s/p syncopal event with tSAH, contusion, skull fracture Plan: -Neuro intact, GCS 15 this am -Continue Q4 neuro checks, continue ICU care. -Shoulder pain - xrays done no abnormalities -Repeat HCT reviewed with Dr. Fuchs this am. Hemorrhage appears slightly worse. Radiologist report reads as stable. -Platelets 65 this am, continue to monitor -PT/OT/CADDY ordered -CTA without aneurysm or other vascular abnormalities -Repeat HCT likely in 2 days. -Call NS with any questions -Pt seen and d/w Dr Fuchs Subjective: Pt resting in bed, no new complaints. Chart reviewed. Objective: AAOx3 NAD VSS MAEx4 CN II-XII grossly intact Motor 5/5 BUE/BLE +LT Urinary Catheter in Place: No - Physician Discussed Patient with : Jef Patient Seen by : Jef Neurosurgery Physical Exam - Vitals, I&O, Labs I and O 09/14/17 09/15/17 09/16/17 05:59 05:59 05:59 Intake Total 2537 1670 Output Total 1875 1450 Balance 662 220 Weight 81.5 kg Intake: Oral (ml) 800 1500 IV Infused (ml) 1737 170 Ns 1,000 ml @ 70 mls/hr 665 140 IV CONT GAETANO Rx#: [id number] niCARdipine/NACL 200 ml @ 472 30 Titrate IV CONT GAETANO Rx#: [id number] Output: Urine (ml) 1875 1450 Urinal 1425 1450 Vital Signs Temp Pulse Resp BP Pulse Ox 37.5 C 56 L 12 158/76 H 95 09/15/17 00:05 09/15/17 06:00 09/15/17 06:00 09/15/17 07:11 09/15/17 06:00 Laboratory Results 09/15/17 05:24 09/15/17 05:24 ICD10 Worksheet Patient Problems: Problems Problem Status Onset Anemia Acute Laceration of head Acute MDS (myelodysplastic syndrome) Acute Subarachnoid bleed Acute Syncope Acute Thrombocytopenia Acute
[2017-09-15] MEDS: ACYCLOVIR 400 MG TAB PO SCH ×2 (09:18→20:25)
[2017-09-15] MEDS: VORICONAZOLE 200 MG TAB PO SCH ×2 (09:18→20:23)
[2017-09-15] MEDS: TAMSULOSIN HCL 0.4 MG CAP PO SCH ×2 (09:19→20:25)
[2017-09-15] MEDS: VENLAFAXINE HCL 75 MG TAB PO SCH (09:19)
[2017-09-15] MEDS: PANTOPRAZOLE SODIUM 40 MG TAB PO SCH (09:19)
[2017-09-15] MEDS: URSODIOL 250 MG PO SCH ×2 (09:22→20:25)
[2017-09-15] MEDS: VORICONAZOLE 50 MG PO SCH ×2 (09:22→20:23)
--- NOTE | 2017-09-15 10:07 | SOAPPROG ---
SOAP Progress Note Assessment/Plan: Assessment: 1. High risk MDS s/p allo SCT (related donor) 2. Recent donor lymphocyte infusion 3. Recurrent syncope, unexplained 4. Subarachnoid hemorrhage after fall 5. Likely R rotator cuff injury after fall no evidence of graft versus host disease. Platelets at goal (>50) Plan: - will continue to monitor for evidence of acute GVHD, which can be a complication of donor lymphocyte infusion - continued monitoring per neurosurgery d/w dr zelaya 25 min spent w/ pt and in coordination of care. 09/15/17 10:05 Subjective: headache. R shoulder hurts about the same. Objective: exam: tired appearing Lungs CTAB CV RRR no MGR Abd: +BS NT ND Ext: no edema Skin: no rash or petechie Neuro: a+ox3 Vital Signs Temp Pulse Resp BP Pulse Ox 37.5 C 74 17 143/62 H 99 09/15/17 00:05 09/15/17 08:00 09/15/17 08:00 09/15/17 08:00 09/15/17 08:00 Laboratory Results 09/15/17 05:24 09/15/17 05:24 09/14/17 09/15/17 09/16/17 05:59 05:59 05:59 Intake Total 2537 1670 Output Total 1875 1450 Balance 662 220 PT 14.8 SEC (12.0-15.0) 09/14/17 05:50 INR 1.14 (0.83-1.16) 09/14/17 05:50 ICD10 Worksheet Patient Problems: Problems Problem Status Onset Anemia Acute Laceration of head Acute MDS (myelodysplastic syndrome) Acute Subarachnoid bleed Acute Syncope Acute Thrombocytopenia Acute
[2017-09-15] MEDS: niCARdipine/NACL 200 ML IV SCH ×7 (10:34→23:57)
[2017-09-15] MEDS: HYDROmorphONE/DILAUDID 2 MG/ML INJ IVP PRN ×2 (10:53→17:56)
--- NOTE | 2017-09-15 11:36 | GCON ---
[f rep st] CONSULTATION REASON FOR ADMISSION: 1. Syncope. 2. Subarachnoid hemorrhage. 3. Myelodysplastic syndrome. HISTORY OF PRESENT ILLNESS: Mr. Ordoñez is a 66-year-old white male with an extensive past medical his tory including gastroesophageal reflux disease, hypertension, myelodysplastic syndrome for which he i s followed at [facility] by Dr. Rodriguez. He was found down by bystanders and was b rought to the emergency room and at that time found to have a subarachnoid hemorrhage. Preceding cecile t, he has no recollection of being in ill health. He has history of syncope in the past. He was admi tted and seen by Neurosurgery. He was found to have subarachnoid hemorrhage and a skull fracture. He did not require neurosurgical intervention. Currently, patient is resting comfortably. PAST MEDICAL HISTORY: Significant for myelodysplastic syndrome, gastroesophageal reflux disease, hyp ertension, benign prostatic hypertrophy. ALLERGIES: Sulfa. SOCIAL HISTORY: No history of tobacco use. No history of alcohol use. He is , has excellent family support. REVIEW OF SYSTEMS: A 10-point review of systems was performed and is negative except for what is lis bailee in HPI. PHYSICAL EXAMINATION: VITAL SIGNS: Blood pressure is 143/62, pulse 74, respirations 17, he is afebr ile oxygen saturation 99% on room air. GENERAL: A well-developed, well-nourished 66-year-old white male who is resting comfortably in no acute distress. HEENT: Eyes are PERRLA, EOMI. Throat shows no erythema nor tonsillar hypertrophy. NECK: Supple. There is no cervical adenopathy. HEART: Regula r rate and rhythm with a 2/6 systolic murmur at the left sternal border without radiation. LUNGS: D iminished breath sounds but no wheeze. ABDOMEN: Soft, nontender. Bowel sounds are present. EXTREM ITIES: No clubbing, cyanosis, or edema. NEUROLOGIC: Cranial nerves 2 through 12 are grossly intact. No focal deficits. LABORATORIES: White count is 2.3, hemoglobin 7.8, hematocrit 22, platelet count 65, sodium 139, pota ssium 3.8, chloride 103, CO2 is 25, BUN 14, creatinine 0.8, glucose is 102. Echocardiogram shows an ejection fraction of 79%. Otherwise grossly normal. IMPRESSION: 1. Subarachnoid hemorrhage. 2. Syncopal episode. 3. Pancytopenia. 4. Myelodysplastic syndrome. 5. Hypertension. 6. Benign prostatic hypertrophy. 7. Gastroesophageal reflux disease. RECOMMENDATIONS: 1. Agree with Neurosurgical following. 2. Case has been discussed with Dr. Rodriguez, the patient's oncologist. 3. Would recommend Oncology consultation. 4. Will keep transfusing platelets as tolerated. 5. DVT and PE prophylaxis. Holding anticoagulation for now. 6. Stress ulcer prophylaxis. 7. PT and OT. 8. Speech. /[id number]/MODL
--- NOTE | 2017-09-15 14:27 | GCON ---
[f rep st] CONSULTATION CARDIAC CONSULTATION. DATE OF CONSULTATION: 09/15/2017 CHIEF COMPLAINT: Syncope. HISTORY OF PRESENT ILLNESS: The patient is a 66-year-old male with a history of myelodysplastic syndrome, admitted to the hospital with a subarachnoid hemorrhage. He was feeling well the day of admission and decided to go supervisor opening and picking some medications at [facility]. He recalled parking the car and does not recall anything after that until he was being placed on a stretcher. He was found down by bystanders and EMS was activated. He was found to have a subarachnoid hemorrhage without other neurological symptoms. His only real complaint at this point is fatigue and mild headache. He has been monitored on telemetry and has remained in sinus rhythm. He does have some episodes of bradycardia where with rates of 30 beats per minute and then he has a quick acceleration of heart rates into the 100s. He is in sinus during these events. His EKG reveals normal sinus rhythm. His troponins were negative x2. Echocardiogram revealed preserved LV function with an ejection fraction of 79% without any significant wall motion or valvular abnormalities. A CTA of the head did also evaluate a portion of the neck. This is without significant stenosis. He has a history of syncope, which has been present for the past 4 years. He states he has had an event approximately once a month. They all occurred when he went from a sitting to a standing position. They were preceded by lightheadedness. He has been able to get on the ground, which has prevented him from having true syncope. He also has a history of coronary angiogram 6-7 years ago remotely. He states he had some plaque at that time, but there was no evidence of obstruction. PAST MEDICAL HISTORY: Chronic myelodysplastic syndrome, hyperlipidemia, reflux. PAST SURGICAL HISTORY: Noncontributory. SOCIAL HISTORY: He denies any tobacco use. He currently helps his with her job. He is a retired professor over at the engineering department. HOME MEDICATIONS: Vfend 200 mg twice daily, Ursodiol 250 mg twice daily, Flomax 0.4 mg twice daily, omeprazole 20 mg daily, Fioricet p.r.n., acyclovir 800 mg twice daily, multivitamin daily, supplements daily, desonide cream p.r.n. , venlafaxine 150 mg daily, Vfend 50 mg twice daily. ALLERGIES: Possibly sulfa. REVIEW OF SYSTEMS: Negative except for what is stated in the H and P. PHYSICAL EXAMINATION: GENERAL: Patient appears in no acute distress. VITAL SIGNS: Blood pressure 113/52, heart rate 71, oxygen saturation of 94% on room air. He is afebrile. NECK: No carotid bruits or JVD present. LUNGS: Clear to auscultation. No wheezes, rhonchi, or crackles auscultated. CARDIAC: Regular rate and rhythm without any murmurs, rubs, or gallops appreciated. ABDOMEN: Soft, nontender, nondistended. No evidence of splenomegaly or hepatomegaly. EXTREMITIES: Palpable pulses bilaterally without any evidence of edema. NEUROLOGIC: Nonfocal. SKIN: No obvious rashes or ecchymosis identified. PSYCHIATRIC: Mood and affect appropriate. LABORATORY: Troponin negative x2. WBCs 2.32, hemoglobin 7.8, hematocrit 22.8, platelets 65. DIAGNOSTIC STUDIES: Echocardiogram revealed preserved LV function without any evidence of significant wall motion or valvular abnormalities. EKG reveals normal sinus rhythm. He has been monitored on telemetry and has remained in sinus rhythm. He does become bradycardic at times with a rate of 30 and then increase into the 100s. Head CT showed intraparenchymal hemorrhage involving both frontal lobes and right anterior rastafarian lobe as well as stable subarachnoid hemorrhage anteriorly. Head CTA did visualize portions of the neck which showed patent vertebral arteries, as well as widely patent common carotid arteries. ASSESSMENT: The patient is a 66-year-old male admitted with syncope and subarachnoid hemorrhage. PLAN: The patient has a history of recurrent syncope. His episodes in the past sound like orthostatic events. On this occasion, he was found down near his car. It is possible he had an orthostatic event which was more profound secondary to anemia and decreased intravascular volume. He has been monitored on telemetry and has remained in sinus rhythm. He does, on occasion, become bradycardic with rates in the 30s with a quick increase of rates into the 100s. This could be related to his subarachnoid hematoma and is certainly is not an indication for a pacemaker. I would recommend he continue to be monitored on telemetry and, if no arrhythmias are identified by the time he is discharged, getting a 30-day event monitor and follow up with [facility]. Of note, his echocardiogram essentially normal with preserved LV function and no evidence of wall motion or valvular abnormalities. Also, a CT of the head did show portions of the carotids which were without significant stenosis. Recommendations were discussed with the patient as well as his . /[id number]/MODL MTDD
[2017-09-15] MEDS: NS 1,000 ML IV SCH (15:37)
--- NOTE | 2017-09-15 16:32 | HOSPPROG ---
Hospitalist Progress Note Assessment/Plan: Assessment: 66-year-old male presents with acute skull fracture and acute intracranial hemorrhage complicated by thrombocytopenia secondary to myelodysplastic syndrome Plan: 1. Intracranial hemorrhage. Acute, present on admission, considered to be traumatic in the setting of syncope, with surrounding cerebral edema -d/w Dr. Fuchs, follow-up head CT demonstrating worsening in the right temporal and frontal areas w/ ongoing SAH -CTA not demonstrating any evidence of aneurysm -maintain systolic blood pressure less than 140 w/ nicardipine gtt -neurologic exam currently stable, primary symptom is lethargy, monitor q4 and if worsening repeat CBC to check Hgb/Plts and transfuse if necessary -although patient's has requested transfer to [facility], they do not have neurosurgery trauma services, and all of patient's providers (Dr. Fuchs, myself, Dr. Jacobo, Dr. Francois) agree that transfer at this juncture is unsafe and unobtainable -will repeat HCT on Day 5, sooner if neuro exam changes -reviewed the HCT findings w/ /patient, showing changes from presentation to current HCT 2. Syncope. Unclear etiology, patient does not recall events precipitating his fall but has had previous episodes of syncope or near syncope which were thought to be orthostatic, and has had w/u at [facility] over the past 4 years -echocardiogram normal -discussed the intermittent sinus elie events w/ Cardiology, consultation appreciated, it is felt that a PPM is not indicated at that the precipitating event for this episode of care was likely orthostatic, exacerbated by anemia -recommend outpatient 30 day event monitor through [facility] 3. Thrombocytopenia. Secondary to mild dysplastic syndrome, continue to transfuse platelets for levels less than 50,000 in setting of active bleeding 4. Pancytopenia 2/2 Myelodysplastic syndrome. Chronic, status post stem-cell transplant and DLI, at high risk of graft vs host disease and receives frequent lab monitoring as outpt -currently no e/o GVHD, nursing care order placed to monitor for signs (vomiting , severe headache, diarrhea, skin rash, fever) and monitor provider if such signs occur -fibrinogen normal, appreciate ongoing consultation by Dr. Chaney -lengthy family conference today (60 minutes) at bedside w/ patient and , including patient's oncologist, Dr. Francois, reviewed patient's MDS tx up to this juncture, the proposed f/u care for approx 7-10 days from stabilization of ICH, and ongoing outpt labs/care coordination through their clinic w/ [facility] -patient/ to obtain daily labs for their records/trending, reviewed current labs w/ patient/ 4. Acute concussion. Evidenced by retrograde amnesia status post traumatic head injury w/ ongoing symptoms including mild headache and fatigue -encourage PT/OT/Cog therapy, anticipate that he will have persistent sx for 4- 6 weeks w/ slow recovery -IPR eval requested and possibility shared w/ patient and , as there are some care concerns regarding ability to complete ADLs following this hospitalization 5. Acute skull fracture. Ongoing head trauma care 6. Shoulder pain. Acute, no evidence of fracture on x-ray, physical exam suggestive of either rotator cuff injury or possible underlying hematoma given his thrombocytopenia and trauma -d/w patient, will get MRI for prognostic value -ice/heat Diet. Regular Prophylaxis. High risk patient, SCDs Code. Full Disposition. Anticipated discharge is uncertain, pending stabilization of head CT 75 min of critical care time spent with this patient, coordinating care with his , his nurse, our welfare case worker, Donnell Mcfarland, Jef, Shiv, and specifically addressing his acute intracranial hemorrhage and concomitant myelodysplastic syndrome, rendering him critically ill and high risk for worsening morbidity and/or mortality. Subjective: ongoing fatigue, mild headache, R shoulder pain w/ ROM Objective: Vital Signs Temp Pulse Resp BP Pulse Ox 37.5 C 82 12 133/87 H 96 09/15/17 00:05 09/15/17 16:00 09/15/17 16:00 09/15/17 16:00 09/15/17 16:00 Laboratory Results 09/15/17 05:24 09/15/17 05:24 09/14/17 09/15/17 09/16/17 05:59 05:59 05:59 Intake Total 2537 1670 Output Total 1875 1450 250 Balance 662 220 -250 PT 14.8 SEC (12.0-15.0) 09/14/17 05:50 INR 1.14 (0.83-1.16) 09/14/17 05:50 - Physical Exam Constitutional: no apparent distress, appears nourished, not in pain, uncomfortable Eyes: PERRL, EOMI Neurologic: AAOx3, No facial droop Psychiatric: not anxious, not encephalopathic, flat affect, other (fatigued), No agitated ICD10 Worksheet Patient Problems: Problems Problem Status Onset Syncope Acute Subarachnoid bleed Acute Anemia Acute MDS (myelodysplastic syndrome) Acute Thrombocytopenia Acute Laceration of head Acute
[2017-09-16] MEDS: NS 1,000 ML IV SCH (05:24)
[2017-09-16] MEDS: niCARdipine/NACL 200 ML IV SCH ×3 (05:24→14:55)
[2017-09-16 05:43] LABS: PLATELET COUNT 49 10^3/uL (150-400)
[2017-09-16] MEDS: VORICONAZOLE 200 MG TAB PO SCH ×3 (07:41→22:48)
[2017-09-16] MEDS: ACYCLOVIR 400 MG TAB PO SCH ×2 (07:41→20:57)
[2017-09-16] MEDS: VENLAFAXINE HCL 75 MG TAB PO SCH (07:42)
[2017-09-16] MEDS: PANTOPRAZOLE SODIUM 40 MG TAB PO SCH (07:42)
[2017-09-16] MEDS: oxyCODONE IR 5 MG TAB PO PRN (07:42)
[2017-09-16] MEDS: TAMSULOSIN HCL 0.4 MG CAP PO SCH ×2 (07:42→20:58)
[2017-09-16] MEDS: VORICONAZOLE 50 MG PO SCH ×2 (07:43→21:05)
[2017-09-16] MEDS: URSODIOL 250 MG PO SCH ×2 (07:43→20:58)
--- NOTE | 2017-09-16 08:37 | NEUSURGPN ---
Assessment/Plan: A: 66 yo M s/p syncopal event with tSAH, contusion, skull fracture, stable neuro intact Plan: -Continue Q4 neuro checks, continue ICU care. -crit care to adjust BP meds -Shoulder pain - xrays done no abnormalities -Platelets 49 this am, crit care will manage -PT/OT/SPECIALIZED DEVELOPER ordered -CTA without aneurysm or other vascular abnormalities -Repeat HCT yesterday reviewed with Dr. Fuchs who felt Hemorrhage appears slightly worse. Radiologist report reads as stable. we will repeat tomorrow morning and if stable then could dc if cleared by therapies and f/u 2-3 weeks with new HCT. -Call NS with any questions Subjective: no complaint of headaches. feels a little "mushy" and has felt unsteady on his feet. no other issues Objective: VSS AAOx4 NAD cnii-xii grossly intact EOMI, PEARLA no facial droop, no pronator drift MAEx4 5/5= silt gait deferred. Neuro Check Frequency: q4 - Physician Discussed Patient with : Jef Neurosurgery Physical Exam - Vitals, I&O, Labs I and O 09/15/17 09/16/17 09/17/17 05:59 05:59 05:59 Intake Total 1670 2553 Output Total 1450 700 10 Balance 220 1853 -10 Intake: Oral (ml) 1500 450 IV Infused (ml) 170 2103 Ns 1,000 ml @ 70 mls/hr 140 917 IV CONT GAETANO Rx#: [id number] niCARdipine/NACL 200 ml @ 30 1186 Titrate IV CONT GAETANO Rx#: [id number] Output: Urine (ml) 1450 700 10 Toilet 100 Urinal 1450 600 10 Other: Number of Voids Toilet 1 Urinal 4 Number of Stools Toilet 1 Vital Signs Temp Pulse Resp BP Pulse Ox 37.0 C 91 14 123/56 H 95 09/16/17 07:00 09/16/17 08:00 09/16/17 08:00 09/16/17 08:00 09/16/17 08:00 Laboratory Results 09/16/17 05:20 09/16/17 05:20 ICD10 Worksheet Patient Problems: Problems Problem Status Onset Anemia Acute Laceration of head Acute MDS (myelodysplastic syndrome) Acute Subarachnoid bleed Acute Syncope Acute Thrombocytopenia Acute
--- NOTE | 2017-09-16 09:01 | PDINTPN ---
Supervisor [employer] Progress Note Assessment/Plan: Assessment: * Subarachnoid hemorrhage * Myelodysplastic syndrome * Pancytopenia-secondary to above. Platelet counts down a little today. -follow closely * Syncopal episodes * Gastroesophageal reflux disease * Hypertension-currently on nicardipine -will restart patient home lisinopril -will wean nicardipine as tolerated * PT/OT * Ambulation Subjective: Complains of slight headache. Otherwise feels well he is Objective: Vital Signs Temp Pulse Resp BP Pulse Ox 37.0 C 91 14 123/56 H 95 09/16/17 07:00 09/16/17 08:00 09/16/17 08:00 09/16/17 08:00 09/16/17 08:00 Laboratory Results 09/16/17 05:20 09/16/17 05:20 09/15/17 09/16/17 09/17/17 05:59 05:59 05:59 Intake Total 1670 2553 Output Total 1450 700 60 Balance 220 1853 -60 PT 14.8 SEC (12.0-15.0) 09/14/17 05:50 INR 1.14 (0.83-1.16) 09/14/17 05:50 - Time Spent With Patient Time Spent With Patient: 25 min of time spent with patient, over 1/2 involved with coordination of care or counseling Physical Exam - Physical Exam General Appearance: alert, no apparent distress EENT: PERRL/EOMI, normal ENT inspection Neck: non-tender, full range of motion, supple, normal inspection Respiratory: chest non-tender, lungs clear, normal breath sounds Cardiac/Chest: normal peripheral pulses, regular rate, rhythm Peripheral Pulses: 2+: carotid (R), carotid (L), femoral (R), femoral (L), dorsalis-pedis (R), dorsalis-pedis (L) Abdomen: normal bowel sounds, non-tender, soft Male Genitalia: deferred Rectal: deferred Back: Normal inspection Skin: normal color, warm/dry Lymphatic: no adenopathy Extremities: normal range of motion, non-tender, normal inspection, normal capillary refill Neuro/Psych: no motor/sensory deficits, alert, normal mood/affect, oriented x 3 ICD10 Worksheet Patient Problems: Problems Problem Status Onset Anemia Acute Laceration of head Acute MDS (myelodysplastic syndrome) Acute Subarachnoid bleed Acute Syncope Acute Thrombocytopenia Acute
[2017-09-16 09:05] LABS: PLATELET COUNT 46 10^3/uL (150-400)
[2017-09-16] MEDS ORDERED: POTASSIUM CL 20 MEQ TAB PO ONE (10:11)
--- NOTE | 2017-09-16 10:25 | GPROG ---
[f rep st] PROGRESS NOTE SUBJECTIVE: The patient is a 66-year-old man who has mild dysplastic syndrome. He has subarachnoid hemorrhage. He has had a bone marrow transplant done at [facility]. He had a bone marrow tra nsplant last fall. He felt lightheaded. He parked his car and then he came to while he was receiving help from EMS. He did have a subarachnoid hemorrhage and he has been lightheaded and somewhat dizzy since that time. While he has been in the hospital, he had several episodes of bradycardia. He is in sinus rhythm. Mi lan has an echocardiographic study that is unremarkable. The patient has had syncope, he tells me now for 2 years. His said it has been longer. He has actually lost consciousness only twice; once in [facility] in September of last year and this time several da ys ago. He has been lightheaded four times where he thinks he is going to faint so he gets down. He has been fine according to them. He has had his bone marrow transplant at [facility] through the [facility] system. He is not having headaches right now. He has no chest pain, chest tightness, jaw pain, arm pain. No pleuritic chest pain. No fever, chills. No nausea, vomiting. He has not been having palpitations. He has no pleuritic chest pain. He has no history of atrial arrhythmias, atrial fibrillation, vent ricular arrhythmias, rheumatic heart disease. The patient has had angiography and has no significant coronary artery disease. His cardiac risk factors are positive for hypertension, known coronary disease that is not of high-gr randy obstruction, hyperlipidemia. His cardiac risk factors are negative for family history of premature coronary disease, smoking, hype ruricemia, obesity, or diabetes mellitus. OBJECTIVE: Blood pressure is 131/53. He has oxygen saturation 95%. His respiratory rate is 12. He is sitting comfortably in a hospital chair. Lungs reveal rhonchi. No rales, wheezing, or dullness. Cardiovascular exam reveals S1, S2. Soft systolic murmur left sternal border. No diastolic murmur . No S3, S4. No rubs. Abdomen soft, nontender, without masses. CVA with no tenderness. Extremiti es with no edema. White count is 2.28, hematocrit is 20, platelet count is 46. Sodium 143, potassium 3.3, chloride 108 , CO2 24, BUN 26, creatinine 0.9, glucose 122, total protein 5.7, albumin 3.3. 1. Bradycardia. 2. Mild dysplastic syndrome. 3. History of bone marrow transplant. 4. Anemia. 5. Coronary disease. 6. Dyslipidemia. 7. Hypertension. He has many reasons for maybe being lightheaded when he changes positions, particularly with his becky tocrit in the range of 20. He may also get a little bit dehydrated and then on top of that with fast movements could easily be q uite hypotensive. We are going to check his orthostatics at this point in time. He has had coronary angiography in the past and did not have significant obstructive disease. There is nothing in his current presentation that suggests that he has an acute coronary syndrome causing a ny of his problems. He has no heart failure. He has good LV systolic function. So far we have not documented any arrhythmias and we do not have any evidence that would say that he would benefit from pacemaker. He is a [place] patient and will be coming back to his physicians there. Were he staying with us, I think an outpatient LINQ recorder might be helpful. I have talked to his , answered her questions and his questions, and she says that his events are happening perhaps ev ashish 6 months. If that is the case, obviously a 30 day recorder is not going to help much. He will have the benefit of being monitored here for the next day or so and he has already been here for 3 days and we are no t seeing anything that would suggest pacemaker is indicated. He has had hypertension. He has hyperlipidemia. All of this can be monitored by his physicians at [facility]. They have elected to stop his statins and they have been cutting back his blood pressure medica tion. He has, on his echo, trivial aortic regurgitation. He has normal left ventricular chamber dimension. No regional wall motion abnormalities I have had the opportunity to talk to his and answered her questions as well as his, and I have talked to the cyber security systems engineer about his case. Should he be transferred to [place] soon, they can continue to follow him and they will make outpatien t decisions within their own insurance contract and their vendors exactly what monitoring system they want to use and it would not help to have us get involved at this point in time. There is nothing u rgent about doing the monitor that cannot be taken care of by [place] and they prefer to use their own equipment. Will follow him with you. In summary, we do not know the cause of his repeated episodes of being lightheaded and multiple times passing out, but there is no obvious structural cardiovascular pathology that has been found at this point, and that may change if we monitor him over time. Thank you very much. /[id number]/MODL
--- NOTE | 2017-09-16 13:19 | SOAPPROG ---
SOAP Progress Note Assessment/Plan: Assessment: SOAP Progress Note Assessment/Plan: Assessment: 1. High risk MDS s/p allo SCT (related donor) 2. Recent donor lymphocyte infusion 3. Recurrent syncope, unexplained 4. Subarachnoid hemorrhage after fall 5. Likely R rotator cuff injury after fall 6. Thrombocytopenia secondary to #1. no evidence of graft versus host disease. Platelets at goal (>50) Plan: - will continue to monitor for evidence of acute GVHD (diarrhea, transaminitis, rash), which can be a complication of donor lymphocyte infusion - transfuse to keep platelets above 50K (transfuse today for platelet count 46K) - continued monitoring per neurosurgery ALL BLOOD PRODUCTS SHOULD BE IRRADIATED d/w dr zelaya Objective: Vital Signs Temp Pulse Resp BP Pulse Ox 37.1 C 82 12 138/82 H 95 09/16/17 12:00 09/16/17 12:00 09/16/17 12:00 09/16/17 12:00 09/16/17 12:00 Laboratory Results 09/16/17 08:50 09/16/17 05:20 09/15/17 09/16/17 09/17/17 05:59 05:59 05:59 Intake Total 1670 2553 Output Total 1450 700 60 Balance 220 1853 -60 PT 14.8 SEC (12.0-15.0) 09/14/17 05:50 INR 1.14 (0.83-1.16) 09/14/17 05:50 Physical Exam - Physical Exam General Appearance: no apparent distress Neck: supple Respiratory: lungs clear Abdomen: non-tender, soft Skin: No rash ICD10 Worksheet Patient Problems: Problems Problem Status Onset Anemia Acute Laceration of head Acute MDS (myelodysplastic syndrome) Acute Subarachnoid bleed Acute Syncope Acute Thrombocytopenia Acute
[2017-09-16 14:22] LABS: PLATELET COUNT 52 10^3/uL (150-400)
--- NOTE | 2017-09-16 18:28 | HOSPPROG ---
Hospitalist Progress Note Assessment/Plan: Assessment: 66-year-old male presents with acute skull fracture and acute intracranial hemorrhage complicated by thrombocytopenia secondary to myelodysplastic syndrome Plan: 1. Intracranial hemorrhage. Acute, present on admission, considered to be traumatic in the setting of syncope, with surrounding cerebral edema -CTA not demonstrating any evidence of aneurysm -maintain systolic blood pressure less than 140 w/ nicardipine gtt, added PO amlodipine 2.5 today, wean nicardipine -neurologic exam currently stable, primary symptom is lethargy, monitor q4 and if worsening repeat CBC to check Hgb/Plts and transfuse if necessary -follow-up head CT tomorrow AM (day 5) to gauge stabilization vs. progression 2. Syncope. Unclear etiology, patient does not recall events precipitating his fall but has had previous episodes of syncope or near syncope which were thought to be orthostatic, and has had w/u at [facility] over the past 4 years, appreciate cards consultation -echocardiogram normal -recommend keeping Hgb around 8 to avoid anemia exacerbating his orthostasis -get orthostatic VS -recommend outpatient 30 day event monitor through [facility] 3. Thrombocytopenia. Secondary to mild dysplastic syndrome, continue to transfuse platelets for levels less than 50,000 in setting of active bleeding -requires irradiated product -this afternoon's repeat level 52,000, d/w Dr. Hendrickson, she does not recommend transfusion at this time, will repeat labs in AM 4. Pancytopenia 2/2 Myelodysplastic syndrome. Chronic, status post stem-cell transplant and DLI, at high risk of graft vs host disease and receives frequent lab monitoring as outpt -currently no e/o GVHD, nursing care order placed to monitor for signs (vomiting , severe headache, diarrhea, skin rash, fever) and monitor provider if such signs occur -fibrinogen and other coags normal -transfuse 1u PRBC for Hgb 7 today -after patient's neurosurgical issues stabilized, will explore w/ patient, , and Dr. Francois whether transfer to [facility] will be of additional value vs. outpt mgmt 4. Acute concussion. Evidenced by retrograde amnesia status post traumatic head injury w/ ongoing symptoms including mild headache and fatigue -encourage PT/OT/Cog therapy, anticipate that he will have persistent sx for 4- 6 weeks w/ slow recovery -IPR eval requested and possibility shared w/ patient and , as there are some care concerns regarding ability to complete ADLs following this hospitalization 5. Acute skull fracture. Ongoing head trauma care 6. Shoulder pain. Acute, MRI indicative of distal clavicle and subscapularis/ teres minor contusions, likely from his fall, no e/o hematoma, age-related joint degeneration/tendinopathy -recommend ongoing OT -ice/heat Diet. Regular Prophylaxis. High risk patient, SCDs Code. Full Disposition. Anticipated discharge is uncertain, pending stabilization of head CT High-level of medical complexity, high risk for worsening morbidity and/or mortality secondary to the issues as outlined above. Subjective: patient reports increased energy, small normal appearance BMs, increasing PO fluid intake Objective: Vital Signs Temp Pulse Resp BP Pulse Ox 37.1 C 83 19 121/81 H 99 09/16/17 13:00 09/16/17 18:00 09/16/17 18:00 09/16/17 18:00 09/16/17 18:00 Laboratory Results 09/16/17 13:28 09/16/17 05:20 09/15/17 09/16/17 09/17/17 05:59 05:59 05:59 Intake Total 1670 2553 1341 Output Total 1450 700 760 Balance 220 1853 581 PT 14.8 SEC (12.0-15.0) 09/14/17 05:50 INR 1.14 (0.83-1.16) 09/14/17 05:50 - Physical Exam Constitutional: no apparent distress, appears nourished, not in pain, No uncomfortable Cardiovascular: regular rate and rhythym, no murmur, rub, or gallop, No edema Respiratory: no respiratory distress, no rales or rhonchi, clear to auscultation Gastrointestinal: normoactive bowel sounds, soft, non-tender abdomen, no palpable masses, No distension Skin: other (port site w/o erythema/ecchymoses/induration, no e/o rashes) Neurologic: AAOx3, sensation intact bilaterally, CN II-XII Intact, No weakness ( motor 5/5 bilat UE/LE) Psychiatric: interacting appropriately, not anxious, not encephalopathic, thought process linear ICD10 Worksheet Patient Problems: Problems Problem Status Onset Syncope Acute Subarachnoid bleed Acute Anemia Acute MDS (myelodysplastic syndrome) Acute Thrombocytopenia Acute Laceration of head Acute
[2017-09-16] MEDS: hydrALAZINE 20 MG/ML VIAL IVP PRN (22:43)
[2017-09-17] MEDS: HYDROCODONE/APAP 5/325 TAB PO PRN (01:17)
[2017-09-17] MEDS: hydrALAZINE 20 MG/ML VIAL IVP PRN (04:38)
[2017-09-17 05:11] LABS: PLATELET COUNT 48 10^3/uL (150-400)
--- NOTE | 2017-09-17 08:00 | NEUSURGPN ---
Assessment/Plan: A: 66 yo M s/p syncopal event with tSAH, contusion, skull fracture, stable neuro intact. Repeat CT this AM show stable bleed with expected evolution. No new blood products. CTA workup without aneurysm or other vascular abnormalities Plan: -Q4 neuro checks remainder admission -crit care managing BP -crit care to tranfuse platelets -PT/OT/CRYSTALLIZER OPERATOR ordered -OK for dispo this AM from [facility] -f/u 2-3 weeks outpatient with new HCT. -Call NS with any questions dw Dr. Keller Subjective: continues to feel fuzzy no new neurologic complaints Objective: VSS AAOx4 NAD cnii-xii grossly intact EOMI, PEARLA no facial droop, no pronator drift MAEx4 5/5= silt gait deferred. - Physician Discussed Patient with : Jef Neurosurgery Physical Exam - Vitals, I&O, Labs I and O 09/16/17 09/17/17 09/18/17 05:59 05:59 05:59 Intake Total 2553 1941 Output Total 700 1860 Balance 1853 81 Intake: Oral (ml) 450 600 IV Intake (ml) 885 IV Infused (ml) 2103 456 Ns 1,000 ml @ 70 mls/hr 917 IV CONT GAETANO Rx#: [id number] niCARdipine/NACL 200 ml @ 1186 456 Titrate IV CONT GAETANO Rx#: [id number] Output: Urine (ml) 700 1860 Toilet 100 1150 Urinal 600 710 Other: Number of Voids Toilet 1 10 Urinal 4 3 Number of Stools Toilet 1 0 Vital Signs Temp Pulse Resp BP Pulse Ox 36.6 C 78 16 157/61 H 98 09/17/17 01:00 09/17/17 07:00 09/17/17 07:00 09/17/17 07:00 09/17/17 07:00 Laboratory Results 09/17/17 04:44 09/17/17 04:44 ICD10 Worksheet Patient Problems: Problems Problem Status Onset Anemia Acute Laceration of head Acute MDS (myelodysplastic syndrome) Acute Subarachnoid bleed Acute Syncope Acute Thrombocytopenia Acute
[2017-09-17] MEDS: PANTOPRAZOLE SODIUM 40 MG TAB PO SCH (08:49)
[2017-09-17] MEDS: TAMSULOSIN HCL 0.4 MG CAP PO SCH (08:50)
[2017-09-17] MEDS: VORICONAZOLE 200 MG TAB PO SCH (08:51)
--- NOTE | 2017-09-17 09:08 | PDINTPN ---
H[employer]orer Progress Note Assessment/Plan: Assessment: * Subarachnoid hemorrhage-repeat CT scan mostly unchanged. -stable for discharge home from neurosurgical standpoint * Myelodysplastic syndrome * Pancytopenia-secondary to above. Platelet counts down a little today. -follow closely * Syncopal episodes * Gastroesophageal reflux disease * Hypertension-controlled * PT/OT * Ambulation Subjective: Resting comfortably. Headache is tolerable. Wishes to go home. Objective: Vital Signs Temp Pulse Resp BP Pulse Ox 36.5 C 92 12 146/67 H 97 09/17/17 08:00 09/17/17 08:00 09/17/17 08:00 09/17/17 08:00 09/17/17 08:00 Laboratory Results 09/17/17 04:44 09/17/17 04:44 09/16/17 09/17/17 09/18/17 05:59 05:59 05:59 Intake Total 2553 1941 Output Total 700 1860 Balance 1853 81 PT 14.8 SEC (12.0-15.0) 09/14/17 05:50 INR 1.14 (0.83-1.16) 09/14/17 05:50 - Time Spent With Patient Time Spent With Patient: 25 min of time spent with patient, over 1/2 involved with coordination of care or counseling Case discussed with Neurosurgery as well as nursing Physical Exam - Physical Exam General Appearance: alert, no apparent distress EENT: PERRL/EOMI Neck: non-tender, full range of motion Respiratory: chest non-tender, lungs clear, normal breath sounds Cardiac/Chest: normal peripheral pulses, regular rate, rhythm Abdomen: normal bowel sounds, non-tender, soft Male Genitalia: deferred Rectal: deferred Skin: normal color, warm/dry Extremities: normal range of motion, non-tender, normal inspection, normal capillary refill Neuro/Psych: no motor/sensory deficits, alert, normal mood/affect, oriented x 3 ICD10 Worksheet Patient Problems: Problems Problem Status Onset Anemia Acute Laceration of head Acute MDS (myelodysplastic syndrome) Acute Subarachnoid bleed Acute Syncope Acute Thrombocytopenia Acute
[2017-09-17] MEDS: ACYCLOVIR 400 MG TAB PO SCH (09:39)
[2017-09-17] MEDS: VENLAFAXINE HCL 75 MG TAB PO SCH (09:40)
--- NOTE | 2017-09-17 09:41 | SOAPPROG ---
SOAP Progress Note Assessment/Plan: Assessment: 1. Syncope 2. Intracranial hemorrhage 3. Coronary artery disease 4. Dyslipidemia 5. Hypertension 6. MDS He feels better today. He has no new complaints. He has had no significant cardiovascular a arrhythmias He continues to have syncope with no clear cardiovascular reason as a cause. He certainly has had a low hematocrit and at times certainly could be dehydrated on top of that. I talked to his several times yesterday and They will pursue some kind of monitoring device her his [place] physicians. A long-term recorder would be most helpful in my opinion. I have discussed this case with the hospitalist today. All the patient's questions have been answered. Subjective: He is feeling well today. His head is a little confused. He has no chest pain He is not lightheaded or dizzy He has not had near syncope He has no palpitations He is not having chest pain jaw pain arm pain. He has no pleuritic chest pain He has no fever chills. He has no new complaints. Overall he feels better than Objective: Vital Signs Temp Pulse Resp BP Pulse Ox 36.5 C 92 12 146/67 H 97 09/17/17 08:00 09/17/17 08:00 09/17/17 08:00 09/17/17 08:00 09/17/17 08:00 Laboratory Results 09/17/17 04:44 09/17/17 04:44 09/16/17 09/17/17 09/18/17 05:59 05:59 05:59 Intake Total 2553 1941 Output Total 700 1860 Balance 1853 81 PT 14.8 SEC (12.0-15.0) 09/14/17 05:50 INR 1.14 (0.83-1.16) 09/14/17 05:50 Selected Entries 09/17/17 09/17/17 07:00 08:00 Temperature (C) 36.5 C Blood Pressure 157/61 H 146/67 H Laboratory Tests 09/14/17 09/17/17 09/17/17 05:50 04:44 04:44 WBC 2.65 L RBC 2.55 L Hgb 8.2 L Hct 21.3 L 24.0 L Plt Count 43 L 48 L Sodium 140 Potassium 3.9 Chloride 107 Carbon Dioxide 23 Anion Gap 10 BUN 18 Creatinine 0.7 Estimated GFR > 60 Glucose 120 H Total Protein 5.9 L Albumin 3.4 L Physical Exam - Physical Exam General Appearance: alert, no apparent distress Respiratory: rhonchi (As) Cardiac/Chest: regular rate, rhythm, systolic murmur Abdomen: non-tender, No soft, No organomegaly (Her) Skin: warm/dry Neuro/Psych: alert, normal mood/affect ICD10 Worksheet Patient Problems: Problems Problem Status Onset Anemia Acute Laceration of head Acute MDS (myelodysplastic syndrome) Acute Subarachnoid bleed Acute Syncope Acute Thrombocytopenia Acute
[2017-09-17] MEDS: URSODIOL 250 MG PO SCH (09:42)
[2017-09-17] MEDS: VORICONAZOLE 50 MG PO SCH (09:43)
--- NOTE | 2017-09-17 12:04 | PDDCSUM ---
Discharge Summary Discharge Summary: DISCHARGE SUMMARY FOLLOW-UP ITEMS: 1. Outpatient CBC and complete metabolic profile at Dr. Francois's office tomorrow 2. Repeat head CT in 2 weeks and follow up with Dr. Fuchs 3. Arrange outpatient linq recorder 4. Uptitrate amlodipine as needed with a goal SBP < 140. DATE OF ADMISSION: 09/13/2017 DATE OF DISCHARGE: 09/17/2017 DISCHARGE DIAGNOSES: 1. Acute traumatic intracranial hemorrhage 2. Acute syncope 3. Thrombocytopenia 4. Pancytopenia secondary to myelodysplastic syndrome 5. Acute concussion 6. Acute skull fracture 7. Acute shoulder pain secondary to musculoskeletal contusions and tendinopathy CONSULTATIONS: Oncology, Neurosurgery, Pulmonary Critical Care PROCEDURES / IMAGIN day follow-up head CT on 09/17/2017 demonstrating stable distribution of bifrontal and anterior right temporal intraparenchymal hemorrhages with associated vasogenic edema, interval read absorption of much of the subarachnoid hemorrhage previously seen along the Pentax dental plate cistern and the upper pre pontine cistern, minimal residual intraventricular hemorrhage in the dependent portion of the occipital horns, there is no new evidence of intracranial hemorrhage or new mass effect compared to 09/15/2017 CHIEF COMPLAINT: Acute syncope SUBJECTIVE: Patient reports very mild headache, he feels steady with standing, he reports that his lethargy has improved, has utilized walker for stability PHYSICAL EXAM ON DISCHARGE: Systolic blood pressure 140-160, heart rate 90, afebrile overnight, satting well on room air, alert awake oriented x3, concentration 7/7, motor strength 5/ 5 bilateral upper and lower extremities, sensation intact bilaterally, facial symmetry LABS ON DISCHARGE: White blood cell count 2600, hemoglobin 8.2, platelets 54010, potassium 3.9, creatinine 0.7, BUN 18, liver panel unremarkable HOSPITAL COURSE BY PROBLEM: 1. Acute traumatic intracranial hemorrhage. The patient experienced an unwitnessed fall in the setting of suspected syncope, this resulted in a traumatic acute intracranial hemorrhage with the most significant bleeding being intraparenchymally in the bilateral frontal aspects as well as right temporal, with some subarachnoid hemorrhage and some bleeding into the ventricles. The affected areas also experienced vasogenic edema. Neurosurgery was consulted and they recommended blood pressure management with Cardene drip, serial head CTs to monitor progression, and frequent neuro checks. The patient' s follow-up head CT at 24hrs demonstrated increase in the bleeding in the frontal and temporal areas, and consequently a day 5 follow-up head CT was scheduled with ongoing neuro checks in the interim as well as blood pressure management. The patient also received blood transfusion with packed red blood cells as well as platelets to maintain a platelet count of greater than 50,000, to stabilize his bleeding. Now that the bleeding has stabilized, the patient is advised to have a 2 week follow-up the and neurosurgery appointment with Dr. Fuchs. Given that the patient has ongoing mild dysplastic syndrome care, his outpatient oncology provider may choose to perform follow-up head CT to monitor for stability prior to that time, as it may influence mild dysplastic syndrome management strategies which can potentiate worsening thrombocytopenia. His platelet count will also be monitored closely in the outpatient setting to ensure that it maintains a reasonable threshold and does not potentiate recurrence of his bleed. The patient's Cardene drip was weaned off as amlodipine was introduced, and the patient's outpatient amlodipine dosage should be titrated to maintain a systolic blood pressure goal less than 140. 2. Acute syncope. Although the patient does not recall the events precipitating his fall, he has had previous episodes of syncope approximately every 6 months which have been previously believed to be orthostatic and has had a workup at [facility] over the past 4 years. The patient had a cardiology consultation for intermittent sinus pauses lasting up to 1.5 sec, and these pauses were not considered to be pathologic. That being said, our director of field coordination did recommend an outpatient linq recorder to be arranged through [facility]. We also believe that the potentiating cause of his initial fall may have been a combination of orthostasis as well as anemia, resulting in syncope, head trauma, retrograde amnesia. 3. Thrombocytopenia. Secondary to his myelodysplastic syndrome, patient's platelet transfusion threshold during this hospitalization was 50,000 the setting of active bleeding. He received irradiated product. His platelet count on the day of discharge was 48,000, and he received platelet transfusion prior to discharge. He will have this level rechecked as an outpatient. 4. Pancytopenia secondary to myelodysplastic syndrome. Patient is status post stem cell transplant and DLI, at high risk for [id number] disease any receives frequent lab monitoring as an outpatient through his primary oncology office at [facility]. The patient's primary oncologist was directly involved in his care during this hospitalization via phone conference, and our content management consultant also discussed patient's care with his primary oncologist, Dr. Francois. The patient's primary oncologist agreed with our transfusion threshold, and agreed that there was no evidence of graft versus host disease during this hospitalization. The patient's blood chemistry was completely normal discharge, he was not demonstrating any signs of vomiting, headache, diarrhea, skin rash, fever at time of discharge. In addition, the patient's fibrinogen level was checked and it was normal. The patient did receive a transfusion of packed red blood cells for hemoglobin of 7 on 09/16/17, and his hemoglobin level appropriately responded, was 8.2 at time discharge. He will have repeat labs tomorrow itis primary oncology office. There was no indication for inpatient hospital transfer to [facility] at time of discharge, and the patient is safe for outpatient follow-up in the immediate future. The patient's most recent bone marrow and FISH results were discussed via phone conference with the patient and his by his primary oncologist. 5. Acute concussion. Patient experienced retrograde amnesia status post his traumatic head injury with ongoing symptoms including headache and fatigue. We recommended that the patient get outpatient cognitive therapy and physical therapy as well as outpatient consultation with Dr. Lakisha Mistry. These modality should be arranged through [facility]. The patient is currently clinically safe for discharge home with assistance from his . We do recommend a walker to be used at home with transfers. 6. Acute shoulder pain secondary to musculoskeletal contusions as well as tendinopathy. Located in the right shoulder, potentiated by his traumatic fall , MRI demonstrating bony contusion at the distal clavicle as well as muscular contusions in the subscapularis and teres minor. I recommend non pharmacologic methods of pain management with ice and heat, as well as outpatient physical therapy for his underlying age-related joint degeneration and tendinopathy. He may follow up with outpatient orthopedics to [facility] today if pain in this joint continues. 7. Acute skull fracture. The patient experienced skull fracture secondary to head trauma, new follow-up with the neurosurgery service for this in 2 weeks. He currently does not have any bony instability. DISCHARGE MEDICATIONS: Please see official discharge medication reconciliation sheet in chart , continue all home medications with the addition of amlodipine 5 mg daily. Please avoid nonsteroidal anti-inflammatory medications. DISCHARGE INSTRUCTIONS: Please follow up with Dr. Francois's office tomorrow for lab draw, possible appointment to be directed by their office. Please return to ED immediately if patient is experiencing any sudden weakness, imbalance, somnolence, severe headache of GVHD symptoms. TIME SPENT: Greater than 30 minutes were spent on direct patient care, as well as discharge planning and preparation.
[2017-09-17 12:14] VITALS: BP 165/73
== END 2017-09-17 13:15 | disposition home or self-care (01) | DRG 87 ==
LOC: EDUNIT# → F2N 20:06
PROVIDERS: ADMIT Student in an Organized Health Care Education/Training Program; ATTEND Internal Medicine
PROC: 30233N1 Transfusion of Nonautologous Red Blood Cells into Peripheral Vein, Percutaneous Approach (ICD-10-PCS; principal; 2017-09-13)
PROC: 30233R1 Transfusion of Nonautologous Platelets into Peripheral Vein, Percutaneous Approach (ICD-10-PCS; 2017-09-16)
DX: S06.361A Traumatic hemorrhage of cerebrum, unspecified, with loss of consciousness of 30 minutes or less, initial encounter (principal); S06.6X1A Traumatic subarachnoid hemorrhage with loss of consciousness of 30 minutes or less, initial encounter; S06.1X1A Traumatic cerebral edema with loss of consciousness of 30 minutes or less, initial encounter; S02.0XXA Fracture of vault of skull, initial encounter for closed fracture; S40.011A Contusion of right shoulder, initial encounter; D46.9 Myelodysplastic syndrome, unspecified; I10 Essential (primary) hypertension; K21.9 Gastro-esophageal reflux disease without esophagitis; N40.0 Benign prostatic hyperplasia without lower urinary tract symptoms; I95.1 Orthostatic hypotension; R55 Syncope and collapse; M75.101 Unspecified rotator cuff tear or rupture of right shoulder, not specified as traumatic; W19.XXXA Unspecified fall, initial encounter; Y92.481 Parking lot as the place of occurrence of the external cause
CPT/HCPCS: 92507-GN; 92523-GN; 97110-GP; 97112-GP; 97116-GP; 97162-GP; 97166-GO; 97530-GO; 97530-GP; 97535-GO; G8987-GO-CJ; G8988-GO-CI; G8989-GO-CI; G9165-GN-CI; G9166-GN-CI; G9167-GN-CI; J0360; J1170; J2405; P9016; P9035; Q9967